=== PATIENT | female | born 1965 ===

== ENCOUNTER 2024-06-18 12:14 | Emergency (ER) | payer OTHER ==
[~2024-06-18] VITALS: Ht 157.5 cm; Wt 67.3 kg
[2024-06-18 12:24] VITALS: BP 152/82; PULSE 91; RESP 18; TEMP 97.8; O2SAT 98
== END 2024-06-18 15:46 | disposition left against medical advice (07) ==
LOC: ER 12:15
DX: M79.601 Pain in right arm (principal); M25.552 Pain in left hip; Z53.21 Procedure and treatment not carried out due to patient leaving prior to being seen by health care provider